=== PATIENT | female | born 1935 | race Caucasian/White ===

== ENCOUNTER 2018-10-02 11:53 | Inpatient (IN) | payer MEDICARE, OTHER | END 2018-10-28 17:25 | disposition E | LOC: TELE-CENTR 10-11 14:18 → ICU CENTRL 10-20 16:25 → DOU IN ICU 10-20 16:57 → ER 11:53 → TELE 15:08 → TELE-WESTW 23:35 | PROC: 30233N1 Transfusion of Nonautologous Red Blood Cells into Peripheral Vein, Percutaneous Approach (ICD-10-PCS; principal; ~2018-10-02) | DX: A41.9 Sepsis, unspecified organism (principal); J18.9 Pneumonia, unspecified organism; J96.20 Acute and chronic respiratory failure, unspecified whether with hypoxia or hypercapnia; I50.41 Acute combined systolic (congestive) and diastolic (congestive) heart failure; E44.0 Moderate protein-calorie malnutrition; N39.0 Urinary tract infection, site not specified; E87.3 Alkalosis; J44.1 Chronic obstructive pulmonary disease with (acute) exacerbation; E87.6 Hypokalemia; I11.0 Hypertensive heart disease with heart failure; K21.9 Gastro-esophageal reflux disease without esophagitis; I25.10 Atherosclerotic heart disease of native coronary artery without angina pectoris; D64.9 Anemia, unspecified; Z86.73 Personal history of transient ischemic attack (TIA), and cerebral infarction without residual deficits; Z95.5 Presence of coronary angioplasty implant and graft ==